=== PATIENT | male | born 1955 | race Caucasian/White ===

== ENCOUNTER 2023-11-28 23:51 | Inpatient (IN) | payer OTHER, SELFPAY ==
[2023-11-28 21:20] VITALS: BP 133/63; BMI 25.7
[2023-11-28 21:33] VITALS: BP 128/55
[2023-11-28 21:38] LABS: Mean Corp Hgb Conc. 31.4 g/dL (33.0-37.0); Mean Corpuscular Hgb 24.5 pg (27.0-31.0); Mean Corpuscular Volume 77.9 fL (80.0-94.0); Platelet Count 285 10^3/uL (130-400); Red Blood Cell Count 2.04 10^6/uL (4.70-6.10); Red Cell Dist. Width 15.6 % (11.5-14.5); White Blood Cell Count 10.2 10^3/uL (4.8-10.8)
[2023-11-28 21:46] LABS: Hematocrit 15.9 % (39.0-52.0)
[2023-11-28 21:47] LABS: INR 1.73; PT 20.1 Sec (11.4-14.6)
[2023-11-28 21:51] LABS: ALT (SGPT) 18 U/L (0-50); AST (SGOT) 18 U/L (17-59); Albumin 3.3 g/dl (3.5-5.0); Alkaline Phosphatase 36 U/L (38-126); Blood Urea Nitrogen 36 mg/dl (9-20); Calcium 8.9 mg/dl (8.4-10.2); Carbon Dioxide 20 mmol/L (22-30); Chloride 108 mmol/L (98-107); Estimated Creatinine Clearance 100 ml/min; Glucose 222 mg/dl (70-99); Potassium 4.1 mmol/L (3.5-5.1); Sodium 138 mmol/L (135-145); Total Bilirubin < 0.1 mg/dl (0.2-1.3); Total Protein 5.4 g/dl (6.3-8.2); eGFR > 60.00
[2023-11-28 21:53] VITALS: BP 132/65
[2023-11-28 22:00] VITALS: BP 132/65
[2023-11-28 22:00] LABS: Lymphocytes 30 % (20-51); Segmented Neutrophils 70 % (42-75)
[2023-11-28 22:01] LABS: Absolute Neutrophils -Man Diff 7.1 10^3/uL (1.4-6.5); Band Neutrophils 0 % (0-3); Normal RBC Morphology No; Platelets Checked Yes; Polychromasia Slight
[2023-11-28 22:02] LABS: Anisocytosis Slight; Microcytosis Slight; Ovalocytes Slight; Poikilocytosis Slight
[2023-11-28 22:03] LABS: Hypochromasia Slight; Tear Drop Red Blood Cells Slight
[2023-11-28 22:04] LABS: Total Cells Counted 100; Troponin I < 0.012 ng/ml
--- NOTE | 2023-11-28 22:08 | ED.GENMED ---
History of Present Illness
<AZUL Richardson - Last Filed: 11/29/23 00:28>
General
Chief Complaint: Chest Pain
Source: patient
Exam Limitations: none
Time Seen by Provider: 11/28/23 21:44
Nursing documentation reviewed up to this point in time: agreed with
Travel History
Have you had any contact with someone who has COVID-19?: No
Do you have any symptoms of coronavirus? Fever > 100 degrees, chills, cough, shortness of breath, sore throat, loss of taste or smell, muscle aches, or headache?: No
History of Present Illness
History of Present Illness:
68-year-old male with a past medical history of MT, 5 stents, lung cancer on Xarelto presents to the ER for evaluation. Patient woke up in in the middle of the night with chest pain and then developed chest pain again prior to arrival. Patient
reports for the past several days however he has felt very weak lightheaded dizzy and increasingly short of breath. He is on Eliquis and has not missed a dose. He denies any black or dark stools.
He had partial left lobectomy in November 2022 but recently diagnosed again with lung cancer.
reports they are from [place], [place] flew here on and were scheduled to go back tomorrow morning. They are waiting to follow-up with oncology.
He denies any lower extremity swelling or pain.
Past History
<AZUL Richardson - Last Filed: 11/29/23 00:28>
Past History
ED Past Medical History: Arrthythmia (Atrial fib), CAD, HTN, Hypercholesterolemia, NIDDM and MT (X2)
ED Past Surgical History: Cardiac (STEMI X2, first with 3 stents and the second with 2 stents.)
Social History
Tobacco: Smoker
Alcohol: Occasional
Drug: None
Personal:
Living: with family
Review of Systems
<AZUL Richardson - Last Filed: 11/29/23 00:28>
Review of Systems
Allergies reviewed?: Yes
All Other Systems: ROS reviewed and negative except as documented in HPI and ROS
Constitutional: Reports fatigue; Denies fever
EENT: Reports no symptoms
Respiratory: Reports trouble breathing
Cardiac: Reports chest pain; Denies diaphoresis, palpitations or syncope
ABD/GI: Denies abdominal pain, nausea, vomiting, diarrhea or black stools
: Reports no symptoms
Musculoskeletal: Reports no symptoms
Skin: Reports no symptoms
Neurological: Reports no symptoms
Hematologic/Lymphatic: Reports no symptoms
Psychiatric: Reports no symptoms
Phy Exam
<AZUL Richardson - Last Filed: 11/29/23 00:28>
General Physical Exam
General Presentation: no apparent distress
General age: appears stated age
General Skin: warm and dry
General Habitus: normal
General Mental: alert
General Hydration: dry mucous membranes
Cardiovascular Exam
Cardiovascular Exam: regular rate/rhythm and systolic murmur
Pulmonary Exam
Pulmonary Exam: no respiratory distress and other (Decreased throughout)
Gastrointestinal Exam
Gastrointestinal Exam: soft and other (heme card + no obvious stool on exam )
Neurological Exam
Neurological Exam: alert and oriented x3
Musculoskeletal Exam
Musculoskeletal Exam: full ROM
Skin Exam
Skin Exam: normal color and warm/dry
Psychiatric Exam
Psychiatric Exam: normal mood/affect
Scores
<AZUL Richardson - Last Filed: 11/29/23 00:28>
Heart Score for Chest Pain Patients
STEMI patient?: Not applicable
Course
<AZUL Richardson - Last Filed: 11/29/23 00:28>
Orders/Labs/Results
Orders:
Orders
11/28/23 21:21
Electrocardiogram (*1) Urgent
Reason for Study: Chest Pain
Cardiac Monitoring- Treatment ONCE
EKG- Treatment ONCE
IV Insert/Care/Rem.- Treatment PRN
O2 Therapy [RESP] Urgent
Titrate/Wean O2 to maintain O2 sat greater than (%): 90
Special Instructions: Maintain sats >/=90%
Pulse Ox/spot Check [RESP] Urgent
Quantity: 1
Special Instructions: ON ROOM AIR
11/28/23 21:30
Complete Blood Count/With Diff Urgent
Comprehensive Metabolic Panel Urgent
Manual Differential Urgent
Prothrombin Time Urgent
Troponin I Urgent
11/28/23 22:04
* Blood Bank Products Urgent
's Orders: Cande/Gaurav
Blood Bank Products: *Packed RBC Leuko(PRBC's)
Quantity: 2
Transfuse Today: Yes
Reason: Anemia
11/28/23 22:08
IV Insert/Care/Rem.- Treatment PRN
11/28/23 22:19
Chest [CR Chest - 2 Views ] Urgent
Comment:
Reason For Exam: cp/spb
11/28/23 23:01
IV Insert/Care/Rem.- Treatment PRN
11/28/23 23:07
Albuterol Nebs [Ventolin Nebules] 2.5 mg INH R NOW STA
11/28/23 23:09
Type+Screen Urgent
11/28/23 23:32
Admit/Transfer Patient As Directed
Co-Sign Provider:
Level of Care: Inpatient admission
Assign to:: IMU- Intermediate Care
Physician / Group: Rudy
Diagnosis: Symptomatic anemia
Reason for Hospitalization: Symptomatic anemia
Expected length of stay greater than two midnights?: Yes
ELOS- Estimated Length of Stay in days: 3
I certify the patient meets the requirements for IP care: Yes
11/28/23 23:34
Code Status As Directed
Resuscitation Status: Full Code
11/28/23 23:40
Pantoprazole [Protonix IV] 80 mg IV NOW STA
11/28/23 23:41
CARDIOLOGY CONSULT Routine
Consulting Provider: Kristal Mosher
Was physician already notified: Yes
Reason for consult: CP, HO CAD, Anemia
Abnormal Lab Results
11/28/23 11/28/23
21:30 23:09
RBC 2.04 L 10^6/uL
(4.70-6.10)
Hgb 5.0 L* g/dL
(13.0-18.0)
Hct 15.9 L* %
(39.0-52.0)
MCV 77.9 L fL
(80.0-94.0)
MCH 24.5 L pg
(27.0-31.0)
MCHC 31.4 L g/dL
(33.0-37.0)
RDW 15.6 H %
(11.5-14.5)
Abs Neuts (Manual) 7.1 H 10^3/uL
(1.4-6.5)
PT 20.1 H Sec
(11.4-14.6)
Chloride 108 H mmol/L
(98-107)
Carbon Dioxide 20 L mmol/L
(22-30)
BUN 36 H mg/dl
(9-20)
Glucose 222 H mg/dl
(70-99)
Total Bilirubin < 0.1 L mg/dl
(0.2-1.3)
Alkaline Phosphatase 36 L U/L
(38-126)
Total Protein 5.4 L g/dl
(6.3-8.2)
Albumin 3.3 L g/dl
(3.5-5.0)
Crossmatch IS Only See Detail
11/28/23 21:30
11/28/23 21:30
Vital Signs
Initial and Last Documented VS:
Initial Vital Signs
Temp Pulse Resp BP Pulse Ox
98.5 F 89 16 133/63 100
11/28/23 21:20 11/28/23 21:20 11/28/23 21:20 11/28/23 21:20 11/28/23 21:20
Last Documented Vital Signs
Temp Pulse Resp BP Pulse Ox
98.5 F 89 20 123/66 96
11/28/23 21:20 11/29/23 00:00 11/29/23 00:00 11/28/23 22:30 11/29/23 00:00
Joint Sealer consulted with Physician
Joint Sealer consulted with physician?: Yes
Name of Physician Consulted: gaurav
<Payton Theodore MD - Last Filed: 11/28/23 22:27>
Orders/Labs/Results
Orders:
Orders
11/28/23 21:21
Electrocardiogram (*1) Urgent
Reason for Study: Chest Pain
Cardiac Monitoring- Treatment ONCE
EKG- Treatment ONCE
IV Insert/Care/Rem.- Treatment PRN
O2 Therapy [RESP] Urgent
Titrate/Wean O2 to maintain O2 sat greater than (%): 90
Special Instructions: Maintain sats >/=90%
Pulse Ox/spot Check [RESP] Urgent
Quantity: 1
Special Instructions: ON ROOM AIR
11/28/23 21:30
Complete Blood Count/With Diff Urgent
Comprehensive Metabolic Panel Urgent
Manual Differential Urgent
Prothrombin Time Urgent
Troponin I Urgent
11/28/23 22:04
* Blood Bank Products Urgent
's Orders: Cande/Gaurav
Blood Bank Products: *Packed RBC Leuko(PRBC's)
Quantity: 2
Transfuse Today: Yes
Reason: Anemia
11/28/23 22:08
IV Insert/Care/Rem.- Treatment PRN
11/28/23 22:19
Chest [CR Chest - 2 Views ] Urgent
Comment:
Reason For Exam: cp/spb
11/28/23 23:01
IV Insert/Care/Rem.- Treatment PRN
11/28/23 23:07
Albuterol Nebs [Ventolin Nebules] 2.5 mg INH R NOW STA
11/28/23 23:09
Type+Screen Urgent
11/28/23 23:32
Admit/Transfer Patient As Directed
Co-Sign Provider:
Level of Care: Inpatient admission
Assign to:: IMU- Intermediate Care
Physician / Group: Rudy
Diagnosis: Symptomatic anemia
Reason for Hospitalization: Symptomatic anemia
Expected length of stay greater than two midnights?: Yes
ELOS- Estimated Length of Stay in days: 3
I certify the patient meets the requirements for IP care: Yes
11/28/23 23:34
Code Status As Directed
Resuscitation Status: Full Code
11/28/23 23:40
Pantoprazole [Protonix IV] 80 mg IV NOW STA
11/28/23 23:41
CARDIOLOGY CONSULT Routine
Consulting Provider: Kristal Mosher
Was physician already notified: Yes
Reason for consult: CP, HO CAD, Anemia
Abnormal Lab Results
11/28/23 11/28/23
21:30 23:09
RBC 2.04 L 10^6/uL
(4.70-6.10)
Hgb 5.0 L* g/dL
(13.0-18.0)
Hct 15.9 L* %
(39.0-52.0)
MCV 77.9 L fL
(80.0-94.0)
MCH 24.5 L pg
(27.0-31.0)
MCHC 31.4 L g/dL
(33.0-37.0)
RDW 15.6 H %
(11.5-14.5)
Abs Neuts (Manual) 7.1 H 10^3/uL
(1.4-6.5)
PT 20.1 H Sec
(11.4-14.6)
Chloride 108 H mmol/L
(98-107)
Carbon Dioxide 20 L mmol/L
(22-30)
BUN 36 H mg/dl
(9-20)
Glucose 222 H mg/dl
(70-99)
Total Bilirubin < 0.1 L mg/dl
(0.2-1.3)
Alkaline Phosphatase 36 L U/L
(38-126)
Total Protein 5.4 L g/dl
(6.3-8.2)
Albumin 3.3 L g/dl
(3.5-5.0)
Crossmatch IS Only See Detail
11/28/23 21:30
11/28/23 21:30
Vital Signs
Initial and Last Documented VS:
Initial Vital Signs
Temp Pulse Resp BP Pulse Ox
98.5 F 89 16 133/63 100
11/28/23 21:20 11/28/23 21:20 11/28/23 21:20 11/28/23 21:20 11/28/23 21:20
Last Documented Vital Signs
Temp Pulse Resp BP Pulse Ox
98.5 F 89 20 123/66 96
11/28/23 21:20 11/29/23 00:00 11/29/23 00:00 11/28/23 22:30 11/29/23 00:00
<AZUL Richardson - Last Filed: 11/29/23 00:28>
MDM/Problems Addressed
Differential Diagnosis Includes:
not limited to: MT, unstable angina, GI bleed anemia
MDM/Problems Addressed:
Patient is a 68-year-old male with history of MT stents lung cancer presents to the ER for evaluation of chest pain. Patient chest pain in the middle the night and then again today. He has had however weakness lightheadedness shortness of breath
which is worse than normal over the past several days. Patient was found to have a hemoglobin of 5.0 no obvious stool in exam but heme test positive. He denies any black or dark stools. He is on Xarelto .
Patient was consented for blood will order to units packed red blood cells. BUN is elevated at 36 possible GI bleed will admit for anemia chest pain.
Normal cardiac troponin.
Chronic conditions affecting care:
MT, stents, smoker, on Xarelto lung cancer
<AZUL Richardson - Last Filed: 11/29/23 00:28>
*Pulse Oximetry
Patient hypoxic: no
*EKG
Interpreted by ED Provider?: Yes
Interpretation: abnormal
Heart Rate: 88
Rate: normal
Rhythm: sinus
Ischemia: non-specific ST changes
*Critical Care Note
Total Time (30-74mins, 75-104mins- exclusive of procedures): Not Applicable
ED Attending Note
<AZUL Richardson - Last Filed: 11/29/23 00:28>
-
Portions of this chart may have been created with voice recognition software.� Occasional wrong word or��sound alike� substitutions may have occurred due to the inherent limitations of voice recognition software.
<Payton Theodore MD - Last Filed: 11/28/23 22:27>
ED Attending Note
Patient seen and examined by attending physician: Yes
I performed the substantive portion of visit, reviewed & personally made and approve the management plan that is documented in note by myself or BALJIT.: Yes
ED Attending Note:
68-year-old male presents emergency department with symptoms essentially since Thursday described as lightheadedness/dizziness with upright position, intermittent chest discomfort with activity, overall malaise and fatigue. No black stool or
bleeding. Patient is on Xarelto he believes for CAD however he does report a history of A-fib in the past. He denies hemoptysis, hematemesis, history of GI bleed in the past. Last colonoscopy was 2 years ago and was unremarkable as per patient.
He denies abdominal pain, nausea, vomiting. Patient is currently asymptomatic. Labs reviewed, hemoglobin markedly decreased at 5. This is likely explanation for his symptoms, unclear etiology at this time however obviously DOAC will be
discontinued and patient admitted for further workup for source of bleed/anemia. does not appear to have signs of end organ injury such as cardiac infarct given pulmonary workup thus far. Questions answered in the presence of his family.
Discharge Plan
Departure
Patient Disposition: Admit
Date of Disposition: 11/28/23
Time of Disposition: 23:06
Admit to: Telemetry
Admit to doctor: Tesfaye
Presentation/result/management discussed w/ accepting MD/DO: Hospitalist
Patient with high blood pressure during this ER visit?: Yes
Condition: Fair
Covid-19: Not Applicable
Discharge Problem:
Chest pain, Anemia
Interventions
Interventions:
*Risk Screen - Suicide Last Done: 11/28/23 21:20
*General Assessment Last Done: 11/28/23 21:20
*Neglect/Abuse Screening Last Done: 11/28/23 21:20
ED- Fall Risk Assessment Last Done: 11/28/23 21:20
*ED COVID-19 Vaccine History Last Done: 11/28/23 21:20
ED- Cardiac Assessment Last Done: 11/28/23 22:00
[2023-11-28 22:30] VITALS: BP 123/66
[2023-11-28] MEDS: VENTOLIN NEBULES 2.5 MG INH (23:11)
--- NOTE | 2023-11-28 23:42 | HPS.HSE ---
Family Physician
-
Family Physician: * NONE
Chief Complaint
-
Dizziness, headache and chest pain
History of Present Illness
68-year-old male basically lives in [place], visiting the area to visit her daughter, and supposed to fly back to [place] tomorrow, presented to the hospital complaining of couple days of fatigue, headache and waking up frequently with a buzzing
noise in his ear, admit shortness of breath and fatigue worse with exertion, admit nausea but no vomiting, and poor appetite, denies any changes stool or urine color or any NSAID intake, drinks a couple coffee daily and smokes couple cigarettes here
and there and couple of beer occasionally.
Denies any weight change.
He is been diagnosed with lung cancer with progressive recurrence. Supposed to go back for treatment and [place].
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 Richar stewart and their phone number is [phone].
Workup in the ER basically showed hemoglobin around 5 and occult blood stool was positive
2 unit of blood given
He is awake, alert and oriented x 3, accompanied by the and daughter at the bedside.
Had colonoscopy 2 years ago basically had couple polyps removed and was told to follow-up in 5 years, never had EGD. While bronchoscopy last week
Medical History
Past Medical History
Past Medical History: Reports Other
Additional Past Medical History:
Past medical history reviewed:
Coronary artery disease status post 5 send
A-fib anticoagulated on Xarelto
Lung cancers
Dyslipidemia
Diabetes mellitus
Chronic polyp
Social history: Lives at home with independently in [place] currently visiting the area smokes couple cigarettes daily and drinks a couple coffee daily and occasionally drinks couple of beers.
Family history: Negative for GI malignancy any bleeding disorder.
Past Surgical History: Reports Other
Social History
Unable to obtain full social history at this time due to: Other
Family History
Family History: Other
Allergies / Home Medications
Allergies reflects when Allergies were last updated in [facility].
Home Medications with original date entered in [facility]
Allergy/Medication List:
Allergies
Allergy/AdvReac Type Severity Reaction Status Date / Time
No Known Allergies Allergy Verified 11/28/23 21:22
Home Medications
Updated medication list provided.
losartan 50 mg tablet 100 mg PO DAILY 07/21/14
metformin 1,000 mg tablet 2,000 mg PO DAILY 07/21/14
aspirin 81 mg tablet,delayed release (Ecotrin Low Strength) 81 mg PO DAILY ##100 07/22/14
atorvastatin 10 mg tablet 80 mg PO DAILY 07/22/14
rivaroxaban 10 mg tablet (Xarelto) 20 mg PO QPM ##30 07/22/14
Glimepiride 2 mg 4 times daily
Lyrica 150 mg 3 times a day.
Alogliptin 25 mg daily
Jardiance 25 mg daily
Zetia at 10 mg daily
Lopressor 50 mg twice a day
Percocet 01/21/2025 takes 1 to 2 tablets every 8 hours as needed
If medication reconciliation has not been performed, why?: Other
Review of Systems
-
A 12 point ROS was completed and negative except as noted: Yes
Physical Exam
Vital Signs
Vital Signs
Temp Pulse Resp BP Pulse Ox
98.5 F 91 18 123/66 100
11/28/23 21:20 11/28/23 22:45 11/28/23 22:45 11/28/23 22:30 11/28/23 23:15
Physical exam:
General: Pale looking awake, alert and oriented x3, not in distress and holds appropriate conversation.
HEENT: No active discharge, ecchymosis or bruising, moist lips, tongue and mucous membrane.
Eyes: No discharge or red conjunctiva, no nystagmus, pupils are reactive and equal
Neck:Supple, no JVD no bruit no goiter.
Respiratory: Normal AP contour and diameter, normal chest wall movement, normal respiratory effort, no respiratory distress,
Lungs: Good air entry bilaterally, no wheezing or rhonchi, no rales or crackles
Heart: S1, S2 regular, normal rate, systolic murmur 2-3/6 and all area mostly upper border,
Gastrointestinal: Positive bowel sounds, soft, nontender, no guarding or rigidity or organomegaly
Musculoskeletal: , no chest wall abnormality or tenderness. All joints and extremities have good range of motion, no muscle tenderness or any joint swelling or tenderness.
Extremities: No pitting edema, good peripheral pulses, good range of motion
Skin: Warm and dry, no ulceration, normal color.
Neurological: Awake, alert and oriented x3, no facial droop, speech clear and comprehensive, good muscle tone, moves extremities for
Psychiatric: Normal mood, normal thought and judgment, normal affect,
Physical Exam
General: Other
Laboratory Results
-
11/28/23 21:30
11/28/23 21:30
Laboratory Results
PT 20.1 Sec (11.4-14.6) H 11/28/23 21:30
INR 1.73 11/28/23 21:30
Total Bilirubin < 0.1 mg/dl (0.2-1.3) L 11/28/23 21:30
AST 18 U/L (17-59) 11/28/23 21:30
ALT 18 U/L (0-50) 11/28/23 21:30
Alkaline Phosphatase 36 U/L (38-126) L 11/28/23 21:30
Troponin I < 0.012 ng/ml 11/28/23 21:30
EKG showed normal sinus rhythm was premature complexes
Rate around 88, LA 152, QTc [address]-T wave abnormality mostly inferiorly.
Data Reviewed
-
Medical Tests (Nuc Med, Echo, EKG etc): Image Personally Visualized and interpreted, Discussed with Patient and Discussed with Family
Lab Data: Labs Reviewed by me, Discussed with Patient and Discussed with Family
Old Records: Reviewed
Impression/Plan
-
IMPRESSION:
68-year-old male with history of CAD status post 5 stent, A-fib, lung cancer presented to the hospital complaining of chest pain reproducible with exertion, fatigue workup concerning for GI blood loss anemia and symptomatic anemia, concerning for
upper GI specially he is on Eliquis 10 mg for A-fib.
Symptomatic anemia
GI blood loss anemia,
Chest pain likely demand ischemia while troponin is negative, doubt a pulm embolism as anticoagulated with Xarelto.
Fatigue
Diabetes mellitus
Mild protein caloric malnutrition
Lung cancer
A-fib, currently in sinus rhythm
Coronary artery disease status post 5 stent
Hypertension
Dyslipidemia
PLAN:
Admit to IMU
Cardiac monitoring
2 units of blood ordered by the ER will be transfused
Monitor H&H every 6 hour to the both unit of blood
Repeat cardiac enzyme
Cardiology and GI consult
Full liquid diet for now
For further workup to GI
Hold aspirin and Xarelto
Hold his oral hypoglycemic agent
Glucoscan
Monitor blood sugar and vital sign closely
All discussed with the patient and family in detail and expressed understanding
CODE STATUS a full code
DVT prophylaxis SCD
[2023-11-29] VITALS (41 sets, daily range): BP systolic 81–121; BP diastolic 39–69; PULSE 67–72; BMI 24.9
[2023-11-29] MEDS: PROTONIX IV 80 MG IV
[2023-11-29] MEDS: NSS 1000 IV ×2 (03:15→15:29)
[2023-11-29] MEDS: PROTONIX 100 IV ×2 (03:17→12:14)
--- NOTE | 2023-11-29 03:45 | PTCARENOTE ---
Received patient from the ED. 1/2 units PRBC currently infusing.
[2023-11-29 07:32] LABS: Glucose - Point of Care 215 mg/dl (70-99)
[2023-11-29] MEDS: NOVOLOG FLEXPEN-MODERATE RESISTANCE 3 UNITS SC ×2 (08:25→13:30)
[2023-11-29] MEDS: COZAAR 100 MG PO (08:26)
[2023-11-29] MEDS: LYRICA 150 MG PO ×2 (08:26→20:09)
[2023-11-29] MEDS: LOPRESSOR 50 MG PO (08:26)
--- NOTE | 2023-11-29 09:15 | PTCARENOTE ---
Assumed care of pt from night RN. Pt AAOx3, makes needs known. Had some c/o of generalized pain, did not want prn pain medication, scheduled Lyrica administered as ordered. 2nd unit PRBC completed this AM, Will check labs 2 hours post completion. Pt
withdrawn and seems frustrated by situation. Emotional support provided. Pt using urinal at bedside, no BM this shift so far. Will monitor.
--- NOTE | 2023-11-29 09:45 | W.PN.HOSP.TC ---
Today's Communication/Plan
-
see AP
Assessment / Plan
Assessment / Plan
68-year-old male basically lives in [place], visiting the area to visit her daughter, and supposed to fly back to [place] Tuesday 11/28, presented to the hospital complaining of fatigue and shortness of breath worse with exertion.
Also nausea but no vomiting, and poor appetite. Denies any changes in stool or urine or any NSAID intake. He drinks a couple coffee daily and smokes couple cigarettes here and there and couple of beer occasionally.
Denies any weight change.
He has been diagnosed with lung cancer with progressive recurrence.�Supposed to go back for treatment at [place].
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 Mcqueen, phone number is [phone].
Workup in the ER showed a hemoglobin around 5 and occult blood stool was positive. 2 units of blood given.
He is awake, alert and oriented x 3, accompanied by the and daughter at the bedside.
Had colonoscopy 2 years ago basically had couple polyps removed and was told to follow-up in 5 years, never had EGD.�
A/P:
# Symptomatic anemia, with likely acute blood loss anemia from GI bleed
# Fatigue and generalized weakness due to above
2 units of blood transfused
Monitor H&H Q8H
Hold aspirin and Xarelto
Cont protonix drip
Check iron studies, B12, folate level
GI CS
# Resolved chest pain, likely demand ischemia
troponin negative, check 2 additional
# Systolic murmur on exam
# h/o coronary artery disease status post 5 stent
check echo
Card was consulted
# Diabetes mellitus
Hold oral hypoglycemic agent
cover with ISS
# Lung cancer
# Paroxysmal A-fib, currently in sinus rhythm
hold [employer]IOR [employer] Xarelto
Cont [employer] Toprol with holding parameter
# Hypertension
Cont [employer] Toprol and Losartan with holding parameter
# Dyslipidemia
CODE STATUS: full code
DVT prophylaxis SCD
DW RN
called family 3 times, the phone number does not work
Anticipated Discharge: 24 - 48 hours
Subjective/Interval History
-
Date of Service: November 29, 2023
Objective Data
-
Labs:
Laboratory Results
11/28/23 11/29/23 11/29/23
21:30 06:00 14:00
WBC 10.2 Pending
Hgb 5.0 L* Pending Pending
Hct 15.9 L* Pending Pending
Plt Count 285 Pending
PT 20.1 H
INR 1.73
Sodium 138 Pending
Potassium 4.1 Pending
Chloride 108 H Pending
Carbon Dioxide 20 L Pending
BUN 36 H Pending
Creatinine 0.8 Pending
Glucose 222 H Pending
Calcium 8.9 Pending
Total Bilirubin < 0.1 L
AST 18
ALT 18
Alkaline Phosphatase 36 L
11/29/23
22:00
WBC
Hgb Pending
Hct Pending
Plt Count
PT
INR
Sodium
Potassium
Chloride
Carbon Dioxide
BUN
Creatinine
Glucose
Calcium
Total Bilirubin
AST
ALT
Alkaline Phosphatase
Vital Signs:
Vital Signs
Temp Pulse Resp BP Pulse Ox
37.0 C 93 14 118/69 92
11/29/23 08:21 11/29/23 08:26 11/29/23 08:21 11/29/23 08:26 11/29/23 08:00
I&O
11/28/23 11/29/23 11/30/23
05:59 06:59 06:59
Intake Total 980 / 980
Output Total 700 / 700
Balance 280 / 280
Review of Systems
-
All other systems: Reviewed and negative
Physical Exam
-
General: Well Developed, Well Nourished, No Apparent Distress, Comfortable and Conversant; Negative Respiratory Distress
HEENT: Normocephalic, Atraumatic, Nose Appears Normal and Ears Appear Normal; Negative Oxygen
Respiratory: Clear to Auscultation and Non Labored Respirations; Negative Accessory Resp Muscle Use
Cardiac: Regular Rhythm and S1/S2
GI: Soft, Nontender, Nondistended and Normal Bowel Sounds
Skin: Warm and Dry
Neuro: Awake, Alert, Oriented, AO x 3 and Nonfocal/Grossly Intact
Psych: Calm and Intact Judgement/Insight
Data Reviewed
-
Labs: Labs Reviewed by me
[2023-11-29 10:59] LABS: Mean Corp Hgb Conc. 32.7 g/dL (33.0-37.0); Mean Corpuscular Hgb 25.6 pg (27.0-31.0); Mean Corpuscular Volume 78.1 fL (80.0-94.0); Platelet Count 257 10^3/uL (130-400); Red Blood Cell Count 2.15 10^6/uL (4.70-6.10); Red Cell Dist. Width 15.1 % (11.5-14.5); White Blood Cell Count 13.5 10^3/uL (4.8-10.8)
[2023-11-29 11:16] LABS: Blood Urea Nitrogen 37 mg/dl (9-20); Calcium 8.1 mg/dl (8.4-10.2); Carbon Dioxide 21 mmol/L (22-30); Chloride 112 mmol/L (98-107); Estimated Creatinine Clearance 114 ml/min; Glucose 176 mg/dl (70-99); Iron 36 ug/dl (49-181); Magnesium 2.2 mg/dl (1.6-2.3); Potassium 4.4 mmol/L (3.5-5.1); Sodium 139 mmol/L (135-145); eGFR > 60.00
[2023-11-29 11:23] LABS: Troponin I 0.012 ng/ml
[2023-11-29 11:25] LABS: Percent Saturation 11 % (20-50); Total Iron Binding Capacity 310 ug/dl (261-462)
[2023-11-29 11:26] LABS: Hemoglobin 5.5 g/dL (13.0-18.0)
[2023-11-29 11:27] LABS: Hematocrit 16.8 % (39.0-52.0)
--- NOTE | 2023-11-29 11:36 | PTCARENOTE ---
Pt repeat Hgb was 5.5 after receiving [address] Che and Dr. Ortega notified. Dr. Che to order 2 more units PRBC. Will continue to monitor closely through shift.
[2023-11-29 11:51] LABS: Ferritin 5.7 ng/ml (17.9-464.0)
[2023-11-29 12:23] LABS: Vitamin B12 358 pg/ml (239-931)
[2023-11-29 12:53] LABS: Glucose - Point of Care 233 mg/dl (70-99)
--- NOTE | 2023-11-29 13:46 | CON.GI ---
Addendum entered and electronically signed by Edilberto Ortega MD 11/29/23 13:58:
Will also change PPI infusion to IV BID.
Original Note:
Consultation
-
Date/Time Consultation Requested: 11/29/2023
Date/Time Consultation Performed: 11/29/2023
Performing Provider: Edilberto Ortega
Reason for Consultation: anemia
Medical History
Chief Complaint / HPI
Chief Complaint: anemia
History of Present Illness:
The patient is 68-year-old male with history of A-fib on Xarelto, CAD, lung cancer, DM, and hyperlipidemia who presents with symptomatic anemia. Patient had fatigue and worsening dyspnea on exertion and came to the ER. Found to have Hgb of 5. He
reports taking significant NSAIDs for past few weeks. Denies abdominal pain. Denies melena, rectal bleeding, or vomiting. He reports having EGD many years ago and had colonoscopy about 2 years ago which showed some polyps but otherwise
unremarkable. He was recommended to repeat his colonoscopy in 5 years.
Past Medical History
Past Medical History: Arrhythmias, CAD, Hypercholesterolemia, NIDDM and Other
Past Surgical History: Other
Social History
Tobacco: Smoker
Alcohol: Occasional
Family History
Family History: Reviewed & Not Pertinent
Allergies / Home Medications
Allergy/AdvReac Type Severity Reaction Status Date / Time
No Known Allergies Allergy Verified 11/28/23 21:22
Medication Instructions Recorded
losartan 50 mg tablet 100 mg PO DAILY 07/21/14
metformin 1,000 mg tablet 1,000 mg PO BID 07/21/14
aspirin 81 mg tablet,delayed 81 mg PO DAILY ##100 07/22/14
release (Ecotrin Low Strength)
atorvastatin 80 mg tablet 10 mg PO DAILY 07/22/14
Glipizide 2 mg PO DAILY 06/02/16
nitroglycerin 0.4 mg sublingual 0.4 mg sublingual [id number] PRN 06/04/16
tablet chest pain #25 tabs
alogliptin 25 mg tablet (Nesina) 25 mg PO DAILY 11/29/23
atorvastatin 10 mg tablet (Lipitor) 10 mg PO DAILY 11/29/23
empagliflozin 25 mg tablet 25 mg PO DAILY 11/29/23
(Jardiance)
ezetimibe 10 mg tablet (Zetia) 10 mg PO DAILY 11/29/23
metoprolol succinate 25 mg 50 mg PO DAILY 11/29/23
tablet,extended release 24 hr
oxycodone-acetaminophen 5 mg-325 1 tab PO Q4HPRN 11/29/23
mg tablet (Percocet)
pregabalin 150 mg capsule (Lyrica) 150 mg PO BID 11/29/23
rivaroxaban 20 mg tablet (Xarelto) 10 mg PO QPM 11/29/23
Review of Systems
Vital Signs
Temp Pulse Resp BP Pulse Ox
98.3 F 75 14 86/62 96
11/29/23 12:26 11/29/23 12:26 11/29/23 12:26 11/29/23 12:26 11/29/23 12:25
Physical Exam
Exam
General: Well Developed and Well Nourished
HEENT: Normocephalic
Respiratory: Clear
Cardiac: S1/S2
GI: Soft, Non Tender and Non Distended
Results
WBC 13.5 10^3/uL (4.8-10.8) H 11/29/23 10:48
Hgb Cancelled 11/29/23 22:00
Hct Cancelled 11/29/23 22:00
MCV 78.1 fL (80.0-94.0) L 11/29/23 10:48
Plt Count 257 10^3/uL (130-400) 11/29/23 10:48
PT 20.1 Sec (11.4-14.6) H 11/28/23 21:30
INR 1.73 11/28/23 21:30
Sodium 139 mmol/L (135-145) 11/29/23 10:48
Potassium 4.4 mmol/L (3.5-5.1) 11/29/23 10:48
Chloride 112 mmol/L (98-107) H 11/29/23 10:48
Carbon Dioxide 21 mmol/L (22-30) L 11/29/23 10:48
BUN 37 mg/dl (9-20) H 11/29/23 10:48
Creatinine 0.7 mg/dL (0.7-1.3) 11/29/23 10:48
Calcium 8.1 mg/dl (8.4-10.2) L 11/29/23 10:48
Total Bilirubin < 0.1 mg/dl (0.2-1.3) L 11/28/23 21:30
AST 18 U/L (17-59) 11/28/23 21:30
ALT 18 U/L (0-50) 11/28/23 21:30
Alkaline Phosphatase 36 U/L (38-126) L 11/28/23 21:30
Diagnostic Image Results:
Prior GI Procedures:
EGD:
Colonoscopy:
Assessment / Plan
-
The patient is 68-year-old male with history of A-fib on Xarelto, CAD, lung cancer, DM, and hyperlipidemia who presents with symptomatic anemia.
Impression / Rec:
1. Symptomatic anemia - presented with fatigue and exertional dyspnea. Hgb on admission 5, normal (15-16) in 2020. Pt has significant NSAID use within last few weeks. Denies overt signs of GI bleed such as melena/rectal bleeding or vomiting.
Denies abdo pain. IZABELA in ER showed no stool but +ve heme. Had colonoscopy 2 years ago which showed polyps otherwise unremarkable. Given this, will plan for EGD first. If EGD is non-diagnostic, then can consider repeat colonoscopy. Last Xarelto
on 11/27, thus will plan for EGD on 11/30. Regular diet for now.
Total Time Spent with Patient (in minutes): 55
-
-
Thank you for consultation and allowing me to participate in the patient's care. Please call the reconditioning associate GI physician during the after hours with any questions or concerns.
[2023-11-29 13:47] LABS: Glycohemoglobin (HgbA1c) 6.7 % (4.0-5.6)
--- NOTE | 2023-11-29 14:02 | CON.CAR ---
Consultation
Consultation Request
Date/Time Consultation Requested: 11/29/23
Date/Time Consultation Performed: 11/29/23
Reason for Consultation: chest pain
Medical History
-
Chief Complaint: chest pain
History of Present Illness:
68-year-old male basically lives in [place], visiting the area to visit her daughter, and supposed to fly back to [place] tomorrow, presented to the hospital complaining of couple days of fatigue, headache and waking up frequently with a buzzing
noise in his ear, admit shortness of breath and fatigue worse with exertion, admit nausea but no vomiting, and poor appetite, denies any changes stool or urine color or any NSAID intake, drinks a couple coffee daily and smokes couple cigarettes here
and there and couple of beer occasionally.
Denies any weight change.
He is been diagnosed with lung cancer with progressive recurrence.� Supposed to go back for treatment and [place]. His tyre fitter in [facility] is Dr. Richar stewart and their phone number is [phone]
Primary Screen Stretcher - in [place] - [facility]
Workup in the ER basically showed hemoglobin around 5 and occult blood stool was positive
2 unit of blood given
He is awake, alert and oriented x 3, accompanied by the and daughter at the bedside.
Had colonoscopy 2 years ago basically had couple polyps removed and was told to follow-up in 5 years, never had EGD.� While bronchoscopy last week
Past Medical History
Past Medical History: Arrhythmias (PAF onXarelto and ASA), CAD (s/p PCI in [place]), Cancer (Lung cancer), HTN, Hypercholesterolemia and NIDDM
Social History
Tobacco: Smoker
Alcohol: Occasional
Personal:
Living: With Family
Family History
Family History: Reviewed & Not Pertinent
Allergies / Home Medications
Allergy/AdvReac Type Severity Reaction Status Date / Time
No Known Allergies Allergy Verified 11/28/23 21:22
Medication Instructions Recorded Confirmed Type
losartan 50 mg tablet 100 mg PO DAILY 07/21/14 11/29/23 History
metformin 1,000 mg tablet 1,000 mg PO BID 07/21/14 11/29/23 History
aspirin 81 mg tablet,delayed 81 mg PO DAILY ##100 07/22/14 11/29/23 Rx
release (Ecotrin Low Strength)
atorvastatin 80 mg tablet 10 mg PO DAILY 07/22/14 11/29/23 History
Glipizide 2 mg PO DAILY 06/02/16 11/29/23 History
nitroglycerin 0.4 mg sublingual 0.4 mg sublingual [id number] PRN 06/04/16 11/29/23 Rx
tablet chest pain #25 tabs
alogliptin 25 mg tablet (Nesina) 25 mg PO DAILY 11/29/23 11/29/23 History
atorvastatin 10 mg tablet (Lipitor) 10 mg PO DAILY 11/29/23 11/29/23 History
empagliflozin 25 mg tablet 25 mg PO DAILY 11/29/23 11/29/23 History
(Jardiance)
ezetimibe 10 mg tablet (Zetia) 10 mg PO DAILY 11/29/23 11/29/23 History
metoprolol succinate 25 mg 50 mg PO DAILY 11/29/23 11/29/23 History
tablet,extended release 24 hr
oxycodone-acetaminophen 5 mg-325 1 tab PO Q4HPRN 11/29/23 11/29/23 History
mg tablet (Percocet)
pregabalin 150 mg capsule (Lyrica) 150 mg PO BID 11/29/23 11/29/23 History
rivaroxaban 20 mg tablet (Xarelto) 10 mg PO QPM 11/29/23 11/29/23 History
Review of Systems
-
History Source: Patient
All other systems: Negative unless noted
Physical Exam
Vital Signs
Temp Pulse Resp BP Pulse Ox
98.3 F 75 14 86/62 96
11/29/23 12:26 11/29/23 12:26 11/29/23 12:26 11/29/23 12:26 11/29/23 12:25
Lab Results
11/29/23 10:48
Troponin I Cancelled 11/29/23 12:00
Physical Exam
General: Well Developed, Well Nourished and No Apparent Distress
HEENT: Normocephalic, Anicteric and Moist Mucous Membranes
Cardiac: S1/S2, Regular Rhythm and Murmur
GI: Soft, Non Tender and Non Distended
Musculoskeletal: No Clubbing, No Cyanosis and No Edema
Skin: Warm and Dry
Neuro: Awake, Alert, Oriented and AO x 3
Impression / Plan
-
68-year-old gentleman with history of paroxysmal atrial fibrillation, coronary disease, hypertension, hyperlipidemia, recent diagnosis of lung cancer presented with chest pain, shortness of breath and is noted to have severe anemia with upper GI
bleed.
GI bleed
-Severe anemia likely acute GI bleed
-On aspirin and Xarelto�10 mg nightly
-Holding aspirin and Xarelto at this time.
-Workup as per GI
Chest pain
-Likely related to severe anemia.
-Does have history of coronary disease with multiple stents in the past
-Set up for demand ischemia
-Troponin is negative x 2
-No sign of acute coronary syndrome.
-Okay to hold aspirin and Xarelto
-ECHO 06/03/16: LVEF 60% - Normal ECHO
Repeat echo in the
Paroxysmal atrial fibrillation
-[id number] score is 3 -age, hypertension, coronary disease,
�hypercoagulability due to malignancy
-Discussed options of switching Xarelto to Eliquis especially with GI bleeding
-Also discussed options of watchman which he will discuss with his architectural drafter in [place]
Data Reviewed
-
EKG: Tracing Personally Visualized and interpreted and Report Reviewed by me
Radiology: Report Reviewed by me
Medical Tests (Nuc Med, Echo etc): Image Personally Visualized and interpreted
Labs: Labs Reviewed by me
Old Records: Reviewed
[2023-11-29] MEDS: FERRLECIT 110 MG IV (14:13)
[2023-11-29] MEDS: LIPITOR 10 MG PO (17:48)
[2023-11-29] MEDS: NOVOLOG FLEXPEN-MODERATE RESISTANCE 5 UNITS SC (17:49)
[2023-11-29 17:59] LABS: Glucose - Point of Care 298 mg/dl (70-99)
[2023-11-29] MEDS: LOPRESSOR PO (19:04)
[2023-11-29] MEDS: PROTONIX IV 40 MG IV (20:09)
[2023-11-29] MEDS: ZETIA 10 MG PO (20:09)
[2023-11-29] MEDS: NSS (PRESERVATIVE FREE) 10 ML IV (20:10)
[2023-11-29 20:29] LABS: Hematocrit 18.7 % (39.0-52.0); Hemoglobin 6.5 g/dL (13.0-18.0)
--- NOTE | 2023-11-29 21:37 | PTCARENOTE ---
Repeat hgb 6.5. inbound call center agent provider made aware and ordered two more units PRBCs. 1/2 infusing now.
[2023-11-29 22:03] LABS: Glucose - Point of Care 226 mg/dl (70-99)
[2023-11-30] VITALS (17 sets, daily range): BP systolic 91–144; BP diastolic 39–100
--- NOTE | 2023-11-30 01:08 | PTCARENOTE ---
2/2 units PRBCs currently infusing.
[2023-11-30 05:33] LABS: Hematocrit 24.7 % (39.0-52.0); Mean Corpuscular Hgb 27.5 pg (27.0-31.0); Mean Platelet Volume 9.8 fL (7.4-10.4); Platelet Count 219 10^3/uL (130-400); Red Blood Cell Count 3.05 10^6/uL (4.70-6.10); Red Cell Dist. Width 14.6 % (11.5-14.5); White Blood Cell Count 14.6 10^3/uL (4.8-10.8)
[2023-11-30 05:51] LABS: Hemoglobin 8.4 g/dL (13.0-18.0)
[2023-11-30 05:59] LABS: Blood Urea Nitrogen 27 mg/dl (9-20); Carbon Dioxide 20 mmol/L (22-30); Chloride 113 mmol/L (98-107); Estimated Creatinine Clearance 114 ml/min; Glucose 134 mg/dl (70-99); Potassium 4.1 mmol/L (3.5-5.1); Sodium 139 mmol/L (135-145); eGFR > 60.00
[2023-11-30 08:36] LABS: Glucose - Point of Care 193 mg/dl (70-99)
[2023-11-30] MEDS: LOPRESSOR PO (08:39)
[2023-11-30] MEDS: NOVOLOG FLEXPEN-MODERATE RESISTANCE 1 UNITS SC (08:39)
[2023-11-30] MEDS: COZAAR PO (08:39)
[2023-11-30] MEDS: PROTONIX IV 40 MG IV ×2 (08:40→20:15)
[2023-11-30] MEDS: LYRICA 150 MG PO ×2 (08:40→20:14)
[2023-11-30] MEDS: NSS (PRESERVATIVE FREE) 10 ML IV ×2 (08:40→20:15)
--- NOTE | 2023-11-30 08:46 | W.PN.GI.CBS2 ---
Addendum entered and electronically signed by Edilberto Ortega MD 11/30/23 18:29:
I saw and examined the patient.
The PA's note was reviewed and I agree with the note.
Comment:
No BM/melena. Plan for EGD tomorrow. Pt deferred colonoscopy. Xarelto being held.
Original Note:
Today's Communication / Plan
-
Etiology of anemia related to PUD with recent NSAID use vs other
hbg 8.4 s/p 6 units transfused since admission
no stools overnight
cont to trend hbg
cont regular diet
Xarelto hold last dose 11/27
cont IV iron
plan for EGD in AM if neg consider colonoscopy but pt currently declines colon at this time
s/p cards eval with chest pain for echo today
pt is due tomorrow for oncology follow up in [place] will try to change to telehealth to review recent lung biopsy and also recently completed pet scan
Assessment / Plan
-
The patient is 68-year-old male with history of A-fib on Xarelto, CAD, lung cancer, DM, and hyperlipidemia who presents with symptomatic anemia. ER rectal heme + in ER. EGD years ago and colonoscopy 2 years ago with polyps.
-anemia with hbg 5.5 on admission with microcytosis
-recent NSAID use for headaches
-recent lung biopsy in [place] last week
-afib on Xarelto prior to admission
-chest pain s/p cards evaluation
other medical problems:
-hx colon polyps
-lung CA
-CAD with prior stent
-hx FL
-DM
-hyperlipidemia
-LE nerve damage
-HTN
-hyperlipidemia
Impression / Rec:
Etiology of anemia related to PUD with recent NSAID use vs other
hbg 8.4 s/p 6 units transfused since admission
no stools overnight
cont to trend hbg
cont regular diet
Xarelto hold last dose 11/27
cont IV iron
plan for EGD in AM if neg consider colonoscopy but pt currently declines colon at this time
s/p cards eval with chest pain for echo today
pt is due tomorrow for oncology follow up in [place] will try to change to telehealth to review recent lung biopsy and also recently completed pet scan
Subjective
Subjective
Date of Service: November 30, 2023
on regular diet no stools overnight
Objective
Data Reviewed
Laboratory Data:
Laboratory Results
11/30/23 05:22
11/30/23 05:22
Laboratory Results
PT 20.1 Sec (11.4-14.6) H 11/28/23 21:30
INR 1.73 11/28/23 21:30
Phosphorus 4.0 mg/dl (2.5-4.5) 11/29/23 10:48
Magnesium 2.2 mg/dl (1.6-2.3) 11/29/23 10:48
Total Bilirubin < 0.1 mg/dl (0.2-1.3) L 11/28/23 21:30
AST 18 U/L (17-59) 11/28/23 21:30
ALT 18 U/L (0-50) 11/28/23 21:30
Alkaline Phosphatase 36 U/L (38-126) L 11/28/23 21:30
Vital Signs and I&O:
Vital Signs
Temp Pulse Resp BP Pulse Ox
97.6 F 73 16 96/82 97
11/30/23 07:55 11/30/23 06:00 11/30/23 06:00 11/30/23 08:39 11/30/23 06:00
I&O
11/29/23 11/30/23 12/01/23
06:59 06:59 06:59
Intake Total 4240 / 4240
Output Total 3000 / 3000 500 / 500
Balance 1240 / 1240 -500 / -500
Physical Exam
Physical Exam
HEENT: Anicteric and Moist mucous membranes
Cardiology: Normal Sinus Rhythm
Pulmonary: Clear
GI: Soft, Non Distended, Non Tender and Normal Bowel Sounds
Extremities: No Edema
Neuro: Non Focal
--- NOTE | 2023-11-30 10:31 | W.PN.HOSP.TC ---
Today's Communication/Plan
-
EGD in AM
hopeful d/c after
Assessment / Plan
Assessment / Plan
68-year-old male basically lives in [place], visiting the area to visit her daughter, and supposed to fly back to [place] Tuesday 11/28, presented to the hospital complaining of fatigue and shortness of breath worse with exertion.
Also nausea but no vomiting, and poor appetite. Denies any changes in stool or urine or any NSAID intake. He drinks a couple coffee daily and smokes couple cigarettes here and there and couple of beer occasionally.
Denies any weight change.
He has been diagnosed with lung cancer with progressive recurrence.�Supposed to go back for treatment at [place].
His kier hand in [facility] is Dr. Mcqueen, phone number is [phone].
Workup in the ER showed a hemoglobin around 5 and occult blood stool was positive. 2 units of blood given.
Had colonoscopy 2 years ago basically had couple polyps removed and was told to follow-up in 5 years, never had EGD.�
Symptomatic anemia with heme positive stool (no hematemesis or melena or BRBPR) possibly acute blood loss anemia from GI bleed vs other (malignancy related)-- s/p 6 units pRBCs-- holding Xarelto and asa--cont PPI drip--vit B12 low normal--iron
studies low--apprec GI consult--for EGD tomorrow AM 11/30
Fatigue and generalized weakness due to above --improved
h/o coronary artery disease status post 5 stent with Resolved chest pain, likely from anemia with Systolic murmur on exam--troponin negative--await cards input--ECHO
type 2 Diabetes mellitus--Hold oral hypoglycemic agent--cover with ISS
Lung cancer with progressive recurrence.�Supposed to go back for treatment at [place].
Paroxysmal A-fib, currently in sinus rhythm--hold DISTILLERY WORKER GENERAL Xarelto--Cont DISTILLERY WORKER GENERAL Toprol with holding parameter
Essential Hypertension--Cont DISTILLERY WORKER GENERAL Toprol and Losartan with holding parameter
Dyslipidemia
CODE STATUS: full code
DVT prophylaxis SCD
Anticipated Discharge: 24 - 48 hours
Subjective/Interval History
-
Date of Service: November 30, 2023
pt wants to get home
Objective Data
-
Labs:
Laboratory Results
11/30/23 11/30/23
05:22 08:58
WBC 14.6 H Pending
Hgb 8.4 L D Pending
Hct 24.7 L Pending
Plt Count 219 Pending
Sodium 139
Potassium 4.1
Chloride 113 H
Carbon Dioxide 20 L
BUN 27 H
Creatinine 0.7
Glucose 134 H
Calcium 8.0 L
Vital Signs:
max temp for 24 hours
11/30/23
01:13
Temp 98.6 F
Vital Signs
Temp Pulse Resp BP Pulse Ox
97.6 F 73 16 96/82 96
11/30/23 07:55 11/30/23 06:00 11/30/23 06:00 11/30/23 08:39 11/30/23 09:18
I&O
11/29/23 11/30/23 12/01/23
06:59 06:59 06:59
Intake Total 4240 / 4240
Output Total 3000 / 3000 500 / 500
Balance 1240 / 1240 -500 / -500
Review of Systems
-
All other systems: Reviewed and negative
Physical Exam
-
General: Well Developed, Well Nourished and No Apparent Distress
HEENT: Normocephalic and Atraumatic; Negative Oxygen
Respiratory: Wheezes (at bases bilaterally)
Cardiac: Regular Rhythm, S1/S2 and Murmur
GI: Soft, Nontender, Nondistended and Normal Bowel Sounds
Musculoskeletal: No Clubbing, No Cyanosis and No Edema
Neuro: Awake
Psych: Calm
--- NOTE | 2023-11-30 10:33 | W.PN.CD ---
Today's Communication / Plan
-
At discharge we suggest a move to single agent Eliquis at AFib doses without antiplatelet. Can only begin Eliquis when OK with medicinea and GI
Murmur=> for Echo
If echo unremarkable then cardiology will sign off
Impression / Plan
-
68-year-old gentleman with history of paroxysmal atrial fibrillation, coronary disease, hypertension, hyperlipidemia, recent diagnosis of lung cancer presented with chest pain, shortness of breath and is noted to have severe anemia with upper GI
bleed.
Chest pain
- Some anginal features
- Troponin normal
- EKG with nonspecific ST-T changes
- No further workup unless CP recurs with correction of anemia
Severe Anemia, suspected from GI bleed
- So far transfused 6 U PRBC
- On ASA an unusual dose of Xarelto (at least for AFib)
- Workup/treatment per medicine/GI
- Hold Xarelto until OK with medicine/GI
- At discharge could consider a move to single agent Eliquis at AFib doses without antiplatelet med as last stent was more than 1 year ago
Murmur
- He is not sure what his last echo showed
- Echo ordered here
Paroxysmal atrial fibrillation
-[id number] score is 3 -age, hypertension, coronary disease,
�hypercoagulability due to malignancy
-Discussed options of switching Xarelto to Eliquis especially with GI bleeding, see above. AND STOP ASA
-Also has the option of watchman which he will discuss with his dewatering filtering supervisor in [place]
CAD, prior stents, hx of IMI
Lung cancer
Subjective:
No further CP
Physical Exam
Vital Signs/Labs
Vital Signs
Temp Pulse Resp BP Pulse Ox
97.6 F 73 16 96/82 96
11/30/23 07:55 11/30/23 06:00 11/30/23 06:00 11/30/23 08:39 11/30/23 09:18
11/29/23 11/30/23 12/01/23
06:59 06:59 06:59
Actual Weight
11/30/23 05:22
PT 20.1 Sec (11.4-14.6) H 11/28/23 21:30
INR 1.73 11/28/23 21:30
Magnesium 2.2 mg/dl (1.6-2.3) 11/29/23 10:48
TSH Cancelled 11/29/23 06:00
LAB Results
11/28/23 11/29/23 11/29/23
21:30 10:48 12:00
Troponin I < 0.012 0.012 Cancelled
11/29/23
17:00
Troponin I Cancelled
Physical Exam
Constitutional: No acute distress
EENT: Anicteric
Cardiovascular: Rhythm & rate is regular, Pedal edema is absent, Systolic murmur present and S1S2 is normal
Respiratory: Respiratory effort normal
GI: Soft and Distention absent
Neuro/Psych: AO x 3
Data Reviewed
-
Date of Service: November 30, 2023
--- NOTE | 2023-11-30 10:36 | CM ---
Addendum entered by Tran Reid 11/30/23 10:44:
Clarification patient states that home is only one story and he is staying on the first floor here with family.
Original Note:
Patient seen at bedside with physician. Patient states that he is here visiting family and he will return to home with family supports as soon as possible. Patient lives in 2 story home with no DME. Patient is independent of ADL's and IADL's prior
to admission. Patient for further testing tomorrow. Patient PCP is Dr. Lee and he uses the [place] [facility] in [place]. Patient may need hardcopy scripts at discharge if medications needed. Patient eager for discharge. CM will continue to follow for
discharge planning needs.
Plan; home with no needs.
[2023-11-30 11:01] LABS: Hematocrit 26.2 % (39.0-52.0); Hemoglobin 9.2 g/dL (13.0-18.0); Mean Corp Hgb Conc. 35.1 g/dL (33.0-37.0); Mean Corpuscular Hgb 28.3 pg (27.0-31.0); Mean Corpuscular Volume 80.6 fL (80.0-94.0); Mean Platelet Volume 10.1 fL (7.4-10.4); Platelet Count 272 10^3/uL (130-400); Red Blood Cell Count 3.25 10^6/uL (4.70-6.10); Red Cell Dist. Width 14.9 % (11.5-14.5); White Blood Cell Count 15.2 10^3/uL (4.8-10.8)
[2023-11-30 12:20] LABS: Glucose - Point of Care 330 mg/dl (70-99)
[2023-11-30] MEDS: NOVOLOG FLEXPEN-MODERATE RESISTANCE 7 UNITS SC (12:54)
[2023-11-30] MEDS: FERRLECIT 110 MG IV (14:45)
[2023-11-30] MEDS: NOVOLOG FLEXPEN-MODERATE RESISTANCE 3 UNITS SC (18:14)
[2023-11-30] MEDS: LIPITOR 10 MG PO (18:17)
[2023-11-30 18:18] LABS: Glucose - Point of Care 209 mg/dl (70-99)
[2023-11-30] MEDS: ZETIA 10 MG PO (20:14)
[2023-11-30] MEDS: LOPRESSOR 50 MG PO (20:14)
[2023-11-30 21:52] LABS: Glucose - Point of Care 309 mg/dl (70-99)
[2023-12-01] VITALS (12 sets, daily range): BP systolic 18–122; BP diastolic 52–83
[2023-12-01] MEDS: NOVOLOG FLEXPEN-MODERATE RESISTANCE 1 UNITS SC (05:18)
[2023-12-01 05:28] LABS: Glucose - Point of Care 183 mg/dl (70-99)
[2023-12-01 05:37] LABS: Hematocrit 26.9 % (39.0-52.0); Mean Corp Hgb Conc. 33.5 g/dL (33.0-37.0); Mean Corpuscular Hgb 27.4 pg (27.0-31.0); Platelet Count 282 10^3/uL (130-400); Red Blood Cell Count 3.28 10^6/uL (4.70-6.10); Red Cell Dist. Width 15.3 % (11.5-14.5); White Blood Cell Count 14.8 10^3/uL (4.8-10.8)
[2023-12-01 06:01] LABS: ALT (SGPT) 26 U/L (0-50); AST (SGOT) 27 U/L (17-59); Albumin 3.1 g/dl (3.5-5.0); Alkaline Phosphatase 39 U/L (38-126); Blood Urea Nitrogen 15 mg/dl (9-20); Calcium 8.3 mg/dl (8.4-10.2); Carbon Dioxide 24 mmol/L (22-30); Chloride 110 mmol/L (98-107); Estimated Creatinine Clearance 100 ml/min; Glucose 160 mg/dl (70-99); Magnesium 2.2 mg/dl (1.6-2.3); Sodium 136 mmol/L (135-145); Total Bilirubin 0.5 mg/dl (0.2-1.3); Total Protein 5.4 g/dl (6.3-8.2); eGFR > 60.00
[2023-12-01] MEDS: COZAAR PO (07:52)
[2023-12-01] MEDS: PROTONIX IV 40 MG IV (07:52)
[2023-12-01] MEDS: LYRICA 150 MG PO (07:52)
[2023-12-01] MEDS: NSS (PRESERVATIVE FREE) 10 ML IV (07:52)
[2023-12-01] MEDS: LOPRESSOR PO (07:53)
--- NOTE | 2023-12-01 08:04 | W.PN.UPDATE ---
Update Note
Progress Note Update
Echo unremarkable with exception of mild to moderate -> to be followed by his head up operator helper.
Recommend single agent apixaban (no antiplatelet) when restart is OK
We are signed off
--- NOTE | 2023-12-01 09:50 | W.PN.HOSP.TC ---
Today's Communication/Plan
-
anticipate d/c home post EGD
Assessment / Plan
Assessment / Plan
68-year-old male basically lives in [place], visiting the area to visit her daughter, and supposed to fly back to [place] Tuesday 11/28, presented to the hospital complaining of fatigue and shortness of breath worse with exertion.
Also nausea but no vomiting, and poor appetite. Denies any changes in stool or urine or any NSAID intake. He drinks a couple coffee daily and smokes couple cigarettes here and there and couple of beer occasionally.
Denies any weight change.
He has been diagnosed with lung cancer with progressive recurrence.�Supposed to go back for treatment at [place].
His forester silviculture in [facility] is Dr. Mcqueen, phone number is [phone].
Workup in the ER showed a hemoglobin around 5 and occult blood stool was positive. 2 units of blood given.
Had colonoscopy 2 years ago basically had couple polyps removed and was told to follow-up in 5 years, never had EGD.�
Symptomatic anemia with heme positive stool (no hematemesis or melena or BRBPR) possibly acute blood loss anemia from GI bleed vs other (malignancy related)-- s/p 6 units pRBCs-- holding Xarelto and asa--cont PPI --vit B12 low normal--iron studies
low--apprec GI consult--for EGD 11/30--plan for d/c after--cards recommending changing from xarelto to eliquis
Fatigue and generalized weakness due to above --improved
h/o coronary artery disease status post 5 stent with Resolved chest pain, likely from anemia with Systolic murmur on exam--troponin negative--await cards input--ECHO
type 2 Diabetes mellitus--Hold oral hypoglycemic agent--cover with ISS
Lung cancer with progressive recurrence.�Supposed to go back for treatment at [place].
Paroxysmal A-fib, currently in sinus rhythm--hold PREPARER SAMPLES AND REPAIRS Xarelto--Cont PREPARER SAMPLES AND REPAIRS Toprol with holding parameter
Essential Hypertension--Cont PREPARER SAMPLES AND REPAIRS Toprol and Losartan with holding parameter
Dyslipidemia
CODE STATUS: full code
DVT prophylaxis SCD
Anticipated Discharge: Today
Subjective/Interval History
-
Date of Service: December 01, 2023
pt wants to go home post EGD
Objective Data
-
Labs:
Laboratory Results
12/01/23
05:13
WBC 14.8 H
Hgb 9.0 L
Hct 26.9 L
Plt Count 282
Sodium 136
Potassium 4.0
Chloride 110 H
Carbon Dioxide 24
BUN 15
Creatinine 0.8
Glucose 160 H
Calcium 8.3 L
Total Bilirubin 0.5
AST 27
ALT 26
Alkaline Phosphatase 39
Vital Signs:
max temp for 24 hours
11/30/23
11:40
Temp 98.2 F
Vital Signs
Temp Pulse Resp BP Pulse Ox
98.6 F 80 12 111/72 100
12/01/23 07:47 12/01/23 08:00 12/01/23 08:00 12/01/23 08:00 11/30/23 20:50
I&O
11/30/23 12/01/23 12/02/23
06:59 06:59 06:59
Intake Total 4240 / 4240
Output Total 3000 / 3000 1025 / 1025
Balance 1240 / 1240 -1025 / -1025
Review of Systems
-
All other systems: Reviewed and negative
Physical Exam
-
General: Well Developed, Well Nourished and No Apparent Distress
HEENT: Normocephalic and Atraumatic
Respiratory: Clear to Auscultation; Negative Wheezes or Rhonchi
Cardiac: Regular Rhythm, S1/S2 and Murmur
GI: Soft, Nontender, Nondistended and Normal Bowel Sounds
Musculoskeletal: No Clubbing, No Cyanosis and No Edema
Skin: Warm
Neuro: Awake
--- NOTE | 2023-12-01 10:22 | PTCARENOTE ---
NPO status maintained - am Lyrica given with sip of water. PO Cozaar and Metoprolol held for SBP 99 (parameters to hold). SR on tele. Denies pain. Voided motion picture set up worker. LBM last . Sent to GI lab via monitored stretcher.
[2023-12-01 11:06] LABS: Glucose - Point of Care 206 mg/dl (70-99)
--- NOTE | 2023-12-01 11:32 | CM ---
Patient seen at bedside with physician. Patient for test today and then home. IMM completed and signed form placed on chart. Prescription/hard copy to be provided for eliquis and patient states that under [facility] he has 100% coverage and has no
questions. Patient for discharge home with and family. CM will continue to follow for discharge planning needs.
Plan; home today with family
[2023-12-01 12:07] LABS: Glucose - Point of Care 196 mg/dl (70-99)
[2023-12-01] MEDS: NOVOLOG FLEXPEN-MODERATE RESISTANCE SC (12:36)
--- NOTE | 2023-12-01 12:49 | PTCARENOTE ---
Returned from PACU/ GI lab AAOx3, VSS. Tolerated Regular diet. IVs x2 removed and discharge instructions received with verbal understanding. Ambulated steady gait. Family picking [place] pt from [place].
--- NOTE | 2023-12-01 18:55 | W.DCSUMMARY ---
Addendum entered and electronically signed by Miranda Briones MD 12/05/23 06:59:
Symptomatic anemia with heme positive stool (no hematemesis or melena or BRBPR) possibly acute blood loss anemia from GI bleed likely exacerbated by xarelto and aspirin.
Original Note:
Discharge Summary
Discharge Data
Date of Admission: 11/28/23
Date of Discharge: 12/01/23
-
Pending Results: Yes
Additional Pending Results:
Biopsy results from his endoscopy
Hospital Course
Primary care physician : None Local--pt from [place]
Principal Discharge diagnosis : Symptomatic anemia with heme positive stools
Chronic Discharge diagnosis : History of coronary artery disease status post 5 stents previously, type 2 diabetes mellitus, lung cancer with progressive recurrence, paroxysmal atrial fibrillation, essential hypertension, hyperlipidemia
Hospital Course : Patient was a 68-year-old male who lives in [place] and is visiting the area. He presented to the hospital complaining of a few days of fatigue and headache along with waking up frequently with a buzzing noise in his ear. He also
admitted to shortness of breath and fatigue. He had nausea but no vomiting. He denied any changes in stool or urine color. 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 Workup in the emergency
department found him to have a hemoglobin of 5, stool was heme positive. Patient was admitted.
Problem #1: Symptomatic anemia with heme positive stools. He also had fatigue and generalized weakness. Patient's hemoglobin was 5 on admission. He was given a total of 6 units of packed red blood cells. Xarelto was on hold as well as his
aspirin. He was started on a PPI and GI was consulted. Patient underwent EGD which showed no significant findings no active bleeding, but biopsies were taken. Plan is to change him from Xarelto to Eliquis as cardiology feels that this would be
less bleeding risk in the long run. He has been instructed to restart his Eliquis this coming Monday, December 04, 2023.
Problem #2: History of coronary artery disease status post 5 stents. Cardiology was consulted as the patient did have chest pain which resolved. Troponins were checked and were negative. Cardiology is recommending transition from Xarelto to
Eliquis as they feel this has a less bleeding risk in the long run. Echocardiogram was checked and was found to have mild to moderate aortic stenosis (patient had impressive heart murmur) and it is recommended he follow-up with his paper cone machine operator.
They also recommend stopping his aspirin.
Problem #3: All other medical issues. These include type 2 diabetes mellitus, lung cancer with progressive recurrence, paroxysmal atrial fibrillation, essential hypertension, hyperlipidemia. These medical issues were stable during his
hospitalization. Medications were continued as able.
Patient is stable for discharge home at this time. If there are any questions regarding this dictation or his hospital stay, please not hesitate to call. Our office number is [phone].
Procedure findings :
ENDOSOCPY Impression:� Nothing to explain his iron deficiency anemia on EGD.
�� � � � � � � � � � � - 3 cm hiatal hernia.
�� � � � � � � � � � � - No gross lesions in the entire esophagus.
�� � � � � � � � � � � - Erosive gastropathy with no bleeding and no stigmata
�� � � � � � � � � � � of recent bleeding. Biopsied.
�� � � � � � � � � � � - Normal examined duodenum.
Discharge Plan
-
Patient Disposition: Home (Routine Discharge)
Discharge Diagnosis/Procedures: Symptomatic anemia with heme positive stool, acute blood loss anemia from presumed GI bleeding, fatigue, history of coronary artery disease status post 5 stents in the past, type 2 diabetes mellitus, lung cancer with
progressive recurrence, paroxysmal atrial fibrillation, essential hypertension, hyperlipidemia
Condition: Good
Diet: As tolerated and Regular
Activity: As tolerated
Driving Restrictions: No driving for 24 hours
Bathing Restrictions: None
Referrals:
NONE,* [Family Provider] - in less than 1 week
Sridevi Hoffmann, DO [Active] -
(f/u with usual GI doctor for colonoscopy and rest of workup
Gi office will call you with biopsy results)
Additional Discharge Medication Instructions: Stop Xarelto. You are changing to Eliquis per our paper cone machine operator recommendations. Start Eliquis on Thursday12/04/23.
Restart your outpatient diabetic medications at your outpatient doses.
Prescriptions:
New
Eliquis 5 mg tablet
5 mg PO BID Qty: 30 0RF
Continued
metformin 1,000 MG tablet
1,000 mg PO BID
Patient Comments:
Please see other Metformin documented--- this dose was never started according to pt on admission to [facility]
losartan 50 MG tablet
100 mg PO DAILY
Glipizide
2 mg PO DAILY
nitroglycerin 0.4 MG tablet, sublingual
0.4 mg sublingual [id number] PRN (Reason: chest pain) Qty: 25 2RF
metoprolol succinate 25 MG tablet extended release 24 hr
50 mg PO DAILY
atorvastatin [Lipitor] 10 mg Tablet
10 mg PO DAILY
oxycodone-acetaminophen [Percocet] 5-325 mg Tablet
1 tab PO Q4HPRN
ezetimibe [Zetia] 10 mg Tablet
10 mg PO DAILY
pregabalin [Lyrica] 150 mg Capsule
150 mg PO BID
alogliptin [Nesina] 25 mg Tablet
25 mg PO DAILY
Jardiance 25 mg Tablet
25 mg PO DAILY
Discontinued
Xarelto 20 MG tablet
10 mg PO QPM
aspirin [Ecotrin Low Strength] 81 MG tablet,delayed release (DR/EC)
81 mg PO DAILY
Discharge Orders:
Discharge Patient (As Directed); Ordered 12/01/23
Ordered By: Miranda Briones
Discharge Date and Time
Discharge Date/Time: 12/01/23 12:36
--- NOTE | 2023-12-04 12:11 | PN.CDI ---
CDI
- -
CDI:
Physician Documentation Request
Admit Date: 11/28/23 23:51
Dear Doctor Anselmo,
Please review the following and provide your response in the progress notes.
Clinical Indicators:
Pt admitted with GI Bleed/ ABLA - EGD done
Documented progress note 11/30, ' possibly acute blood loss anemia from GI bleed vs other (malignancy related)-- s/p 6 units pRBCs-- holding Xarelto and asa...-cards recommending changing from xarelto to eliquis....'
Discharge summary, ' Xarelto was on hold as well as his aspirin. He was started on a PPI and GI was consulted. Patient underwent EGD which showed no significant findings no active bleeding, but biopsies were taken. Plan is to change him from
Xarelto to Eliquis as cardiology feels that this would be less bleeding risk in the long run. ...'
Please clarify the relationship between these conditions:
Yes, _ABLA/GI Bleed __ is related to/associated with/exacerbated by Xarelto/ASA use ___.
No, __ABLA /GI Bleed _ is not related to/associated with/exacerbated by Xarelto/ASA use ___ but it is due to ___. (Please specify)
Unable to determine
Use of terms such as suspected, likely, concern for, or probable (associated with a specific diagnosis that is being evaluated, monitored, or treated as if it exists) are acceptable and can be coded in the inpatient setting, when documented at the
time of discharge.
Thank you,
Tawny Bertrand RN
CDI Specialist
[facility]
Please use your independent medical judgment in providing your response.
== END 2023-12-01 12:36 | disposition home or self-care (01) | DRG 813 ==
LOC: IMU 23:51
PROVIDERS: Emergency Medicine; Internal Medicine; Nurse Practitioner Adult Health; ADMITTING PHYSICIAN Internal Medicine; ATTENDING PHYSICIAN Internal Medicine; CONSULT PHYSICIAN Internal Medicine Cardiovascular Disease; CONSULT PHYSICIAN Internal Medicine Gastroenterology; EMERGENCY PHYSICIAN Emergency Medicine
PROC: 30233N1 Transfusion of Nonautologous Red Blood Cells into Peripheral Vein, Percutaneous Approach (ICD-10-PCS; 2023-11-29)
PROC: 0DB78ZX Excision of Stomach, Pylorus, Via Natural or Artificial Opening Endoscopic, Diagnostic (ICD-10-PCS; 2023-12-01)
DX: D68.32 Hemorrhagic disorder due to extrinsic circulating anticoagulants (principal); K92.2 Gastrointestinal hemorrhage, unspecified; E44.1 Mild protein-calorie malnutrition; C34.90 Malignant neoplasm of unspecified part of unspecified bronchus or lung; D62 Acute posthemorrhagic anemia; F17.200 Nicotine dependence, unspecified, uncomplicated; E11.9 Type 2 diabetes mellitus without complications; E78.00 Pure hypercholesterolemia, unspecified; I10 Essential (primary) hypertension; D50.9 Iron deficiency anemia, unspecified; K44.9 Diaphragmatic hernia without obstruction or gangrene; K31.89 Other diseases of stomach and duodenum; I25.10 Atherosclerotic heart disease of native coronary artery without angina pectoris; I35.0 Nonrheumatic aortic (valve) stenosis; I35.8 Other nonrheumatic aortic valve disorders; I48.0 Paroxysmal atrial fibrillation; I25.2 Old myocardial infarction; Z95.5 Presence of coronary angioplasty implant and graft; Z85.118 Personal history of other malignant neoplasm of bronchus and lung; Z79.01 Long term (current) use of anticoagulants; Z90.2 Acquired absence of lung [part of]; Z79.84 Long term (current) use of oral hypoglycemic drugs; Z79.82 Long term (current) use of aspirin; Z79.891 Long term (current) use of opiate analgesic
CPT/HCPCS: 88305; 71046; 80048; 80053; 82607; 82728; 82746; 82962; 83036; 83540; 83550; 83735; 84100; 84484; 85014; 85018; 85025; 85027; 85610; 86850; 86900; 86901; 86920; 88342; 93005; 93306; 94640; 94760; 99285; J2916; P9016